=== PATIENT | male | born 1950 | race Caucasian/White ===

== ENCOUNTER → 2017-11-02 | Outpatient (CLI) | payer OTHER | LOC: ULTRA 11:32 | DX: I10 Essential (primary) hypertension (principal); H53.9 Unspecified visual disturbance; I65.23 Occlusion and stenosis of bilateral carotid arteries; R26.89 Other abnormalities of gait and mobility; R42 Dizziness and giddiness ==

== ENCOUNTER → 2017-11-03 | Outpatient (CLI) | payer OTHER | LOC: CAT 11:21 | DX: G31.89 Other specified degenerative diseases of nervous system (principal); H53.9 Unspecified visual disturbance; I10 Essential (primary) hypertension; R26.89 Other abnormalities of gait and mobility ==